=== PATIENT | female | born 1975 | race Caucasian/White ===

== ENCOUNTER → 2018-09-11 14:49 | Outpatient (CLI) | payer BC, SELFPAY | PROVIDERS: Family Provider Family Medicine; PCP Family Medicine; Visit Provider Physician Assistant | DX: N39.0 Urinary tract infection, site not specified (principal) | CPT/HCPCS: 87077; 87086; 87147; 87186 ==

== ENCOUNTER → 2018-10-04 10:12 | Outpatient (CLI) | payer BC, SELFPAY | PROVIDERS: PCP Family Medicine; Visit Provider Physician Assistant | DX: R30.0 Dysuria (principal) | CPT/HCPCS: 87086 ==

== ENCOUNTER → 2018-10-23 07:59 | Outpatient (CLI) | payer BC, SELFPAY ==
--- NOTE | 2018-10-23 08:01 | DI.MG.S_ITS ---
BILATERAL DIGITAL SCREENING MAMMOGRAM 3D/2D WITH CAD: 10/23/2018 CLINICAL: Routine screening. Comparison is made to exam dated: 10/12/2016 [facility]. There are scattered fibroglandular elements in both breasts. Current study was also evaluated with a Computer Aided Detection (CAD) system. No significant masses, calcifications, or other findings are seen in either breast. There has been no significant interval change. IMPRESSION: NEGATIVE There is no mammographic evidence of malignancy. A 1 year screening mammogram is recommended. This exam was interpreted at Station ID: [id number]. NOTE: For mammograms, a report in lay terms will be sent to the patient. Approximately 15% of breast malignancies will not be visualized mammographically. In the management of a palpable breast mass, a negative mammogram must not discourage biopsy of a clinically suspicious lesion. Electronically Signed By: Doc montes/arya:10/23/2018 10:41:17 letter sent: Normal Exam ACR BI-RADS Category 1: Negative 3341F
== END ==
PROVIDERS: PCP Family Medicine; Visit Provider Family Medicine
DX: Z12.31 Encounter for screening mammogram for malignant neoplasm of breast (principal)
CPT/HCPCS: 77063; 77067

== ENCOUNTER → 2019-05-30 08:03 | Outpatient (CLI) | payer BC, SELFPAY ==
[2019-05-30 08:29] LABS: Add Manual Diff / Slide Review NO; Basophils Absolute Auto 0 /uL (0-100); Basophils Percent Auto 0.6 % (0-2); Eosinophils Absolute Auto 200 /uL (0-450); Eosinophils Percent Auto 2.3 % (2-4); Hematocrit 42.6 % (36-46); Hemoglobin 14.7 g/dL (12.0-16.0); Lymphocytes Absolute Auto 1800 /uL (1100-4500); Mean Corpuscular HGB Conc 34.6 % (30-36); Mean Corpuscular Hemoglobin 31.7 PG (26-34); Mean Corpuscular Volume 91.6 fL (80-100); Monocytes Absolute Auto 600 /uL (0-900); Monocytes Percent Auto 7.6 % (3-14); Neutrophils Absolute Auto 5000 /uL (1500-7000); Neutrophils Percent Auto 65.5 % (50-75); Platelet Count 295 X10^3/uL (150-400); Red Blood Cell Count 4.65 X10^6/uL (4.0-5.2); Red Cell Distribution Width 11.9 % (11.6-14.8); White Blood Cell Count 7.7 X10^3/uL (4.5-11.0)
[2019-05-30 08:56] LABS: Cholesterol 170 mg/dL (140-199); HDL Cholesterol 49 mg/dL (40-60); LDL Cholesterol Calculated 104 mg/dL (<100); Triglycerides 83 mg/dL (35-150)
[2019-05-30 08:57] LABS: Alanine Aminotransferase 29 IU/L (<35); Albumin 4.1 g/dL (3.5-5.0); Albumin Globulin Ratio 1.4 (1.0-2.8); Alkaline Phosphatase 53 U/L (38-126); Aspartate Aminotransferase 29 IU/L (14-36); BUN Creatinine Ratio 23.3 (6-22); Bilirubin Total 0.9 mg/dL (0.2-1.3); Blood Urea Nitrogen 14 mg/dL (7-17); Calcium 9.5 mg/dL (8.4-10.2); Carbon Dioxide 27 mmol/L (22-32); Chloride 102 mmol/L (98-107); Estimated Glomerular Filt Rate > 60.0 mL/min (>60); Globulin 2.9 g/dL (1.7-4.1); Glucose 98 mg/dL (70-100); HEMOLYSIS 19 (0-50); Lipase 170 U/L (23-300); Potassium 4.3 mmol/L (3.4-5.1); Sodium 137 mmol/L (137-145)
[2019-05-30 09:28] LABS: TSH w/ Reflex to FT4 2.23 uIU/mL (0.47-4.68)
[2019-05-30 09:59] LABS: Hep C Virus Ab w/Reflex Quant NEGATIVE s/c (NEGATIVE)
== END ==
PROVIDERS: PCP Family Medicine; Visit Provider Family Medicine
DX: Z13.220 Encounter for screening for lipoid disorders (principal); L29.9 Pruritus, unspecified
CPT/HCPCS: 36415; 80053; 80061; 83690; 84443; 85025; 86803

== ENCOUNTER → 2019-09-13 13:12 | Outpatient (CLI) | payer BC, SELFPAY | PROVIDERS: PCP Family Medicine; Visit Provider Physician Assistant | DX: R30.0 Dysuria (principal) | CPT/HCPCS: 87086 ==

== ENCOUNTER → 2020-06-06 08:13 | Outpatient (CLI) | payer BC, SELFPAY ==
--- NOTE | 2020-06-06 | DI.MG.S_ITS ---
BILATERAL DIGITAL SCREENING MAMMOGRAM 3D/2D WITH CAD: 06/06/2020 CLINICAL: Routine screening. Comparison is made to exams dated: 10/23/2018 mammogram and 10/12/2016 mammogram - [facility]. There are scattered fibroglandular elements in both breasts. Current study was also evaluated with a Computer Aided Detection (CAD) system. No significant masses, calcifications, or other findings are seen in either breast. There has been no significant interval change. IMPRESSION: NEGATIVE There is no mammographic evidence of malignancy. A 1 year screening mammogram is recommended. This exam was interpreted at Station ID: [id number]. NOTE: For mammograms, a report in lay terms will be sent to the patient. Approximately 15% of breast malignancies will not be visualized mammographically. In the management of a palpable breast mass, a negative mammogram must not discourage biopsy of a clinically suspicious lesion. Electronically Signed By: Sarah collins/arya:06/06/2020 16:18:16 letter sent: Normal Exam ACR BI-RADS Category 1: Negative 3341F
== END ==
PROVIDERS: PCP Family Medicine; Referring Provider Family Medicine; Visit Provider Family Medicine
DX: Z12.31 Encounter for screening mammogram for malignant neoplasm of breast (principal)
CPT/HCPCS: 77063; 77067

== ENCOUNTER → 2020-09-30 15:38 | Outpatient (CLI) | payer BC, SELFPAY | PROVIDERS: PCP Family Medicine; Visit Provider Physician Assistant | DX: L08.9 Local infection of the skin and subcutaneous tissue, unspecified (principal) | CPT/HCPCS: 87070; 87075; 87077; 87147; 87186; 87205 ==

== ENCOUNTER → 2021-06-12 16:51 | Outpatient (CLI) | payer BC, SELFPAY ==
--- NOTE | 2021-06-12 | DI.MG.S_ITS ---
BILATERAL DIGITAL SCREENING MAMMOGRAM 3D/2D WITH CAD: 06/12/2021 CLINICAL: Routine screening. Comparison is made to exams dated: 06/06/2020 mammogram, 10/23/2018 mammogram, and 10/12/2016 mammogram - [facility]. There are scattered fibroglandular elements in both breasts. Current study was also evaluated with a Computer Aided Detection (CAD) system. No significant masses, calcifications, or other findings are seen in either breast. There has been no significant interval change. IMPRESSION: NEGATIVE There is no mammographic evidence of malignancy. A 1 year screening mammogram is recommended. This exam was interpreted at Station ID: [id number]. NOTE: For mammograms, a report in lay terms will be sent to the patient. Approximately 15% of breast malignancies will not be visualized mammographically. In the management of a palpable breast mass, a negative mammogram must not discourage biopsy of a clinically suspicious lesion. Electronically Signed By: Doc Nelson M.D. at/arya:06/13/2021 07:02:30 letter sent: Normal Exam ACR BI-RADS Category 1: Negative 3341F
== END ==
PROVIDERS: PCP Family Medicine; Referring Provider Family Medicine; Visit Provider Family Medicine
DX: Z12.31 Encounter for screening mammogram for malignant neoplasm of breast (principal)
CPT/HCPCS: 77063; 77067

== ENCOUNTER → 2021-09-12 11:09 | Outpatient (CLI) | payer BC, SELFPAY ==
--- NOTE | 2021-09-12 11:10 | DI.US.S_ITS ---
PROCEDURE: US PELVIC COMPLETE INDICATIONS: pelvic pain TECHNIQUE: Real-time scanning was performed of the pelvic organs, with image documentation. Additional endovaginal scanning was necessary due to incomplete visualization of the adnexal and endometrial structures by transabdominal scanning. COMPARISON: [facility], US, PELVIC COMPLETE, 11/26/2016, 16:47. FINDINGS: Uterus: Uterus is anteverted and measures 9.2 x 5.3 x 5.6 cm. The myometrium is heterogeneous. The endometrium measures 7.2 mm combined thickness. An intrauterine device is seen in situ. Ovaries: The right ovary measures 2.2 x 1.6 x 1.9 cm. The left ovary measures 2.3 x 1.5 x 2.1 cm. The ovaries have a normal sonographic appearance. Less than 12 follicles can be seen in each ovary. No adnexal masses are seen. 1 cm hypoechoic lesion in the right ovary, most consistent with a cyst. Hypoechoic lesion in the left ovary with thin septation measuring up to 1.6 cm, most consistent with a cyst. Other: No pathologic free abdominal or pelvic fluid. IMPRESSION: No significant abnormality. We strive to produce accurate, complete, and clear reports of imaging services. To assist us in improving patient care, this report was composed using standard report templates and voice recognition software. Therefore, it may contain abnormal punctuation, insertions and/or omissions. Occasional wrong-word or sound-alike substitutions may occur. Though we review the report and make efforts to correct it, we do recommend that the report be read carefully in proper context to recognize any text inaccuracies. Dictated by: Von Bruce M.D. on 09/12/2021 at 15:19 Approved by: Von Bruce M.D. on 09/12/2021 at 15:22
== END ==
PROVIDERS: PCP Family Medicine; Referring Provider Family Medicine; Visit Provider Family Medicine
DX: N92.0 Excessive and frequent menstruation with regular cycle (principal)
CPT/HCPCS: 76830; 76856

== ENCOUNTER → 2021-10-13 19:22 | Outpatient (CLI) | payer BC, SELFPAY | PROVIDERS: PCP Family Medicine; Visit Provider Nurse Practitioner Critical Care Medicine | DX: R30.0 Dysuria (principal) | CPT/HCPCS: 87077; 87086; 87186 ==

== ENCOUNTER → 2021-10-24 11:30 | Outpatient (CLI) | payer BC, SELFPAY ==
[2021-10-24 17:14] LABS: Appearance Urine UA CLEAR; Bilirubin Urine UA NEGATIVE (NEGATIVE); Color Urine UA YELLOW; Glucose Urine UA NEGATIVE (Negative); Ketones Urine UA NEGATIVE (NEGATIVE); Leukocyte Esterase Urine UA TRACE (NEGATIVE); Nitrite Urine UA NEGATIVE (Negative); Occult Blood Urine UA 2+ (Negative); Protein Urine UA NEGATIVE (Negative); Urobilinogen Urine UA 0.2 E.U./dL (0.2)
[2021-10-24 17:44] LABS: Amorphous Sediment Urine 1+; Bacteria Urine Few (2-10); RBC Urine 1-5/HPF (0-5/HPF); Squamous Epithelial Cell Urine 0-1 /HPF (0-5/HPF); WBC Urine 1-5/HPF (0-5/HPF); pH Urine UA 6.5 (4.5-8.0)
== END ==
PROVIDERS: PCP Family Medicine; Visit Provider Family Medicine
DX: R30.0 Dysuria (principal); R35.0 Frequency of micturition
CPT/HCPCS: 81001; 87077; 87086; 87186

== ENCOUNTER → 2021-11-11 11:15 | Outpatient (CLI) | payer BC, SELFPAY | PROVIDERS: PCP Family Medicine; Referring Provider Physician Assistant; Visit Provider Physician Assistant | DX: R30.0 Dysuria (principal) | CPT/HCPCS: 87086 ==

== ENCOUNTER → 2021-11-18 09:13 | Outpatient (CLI) | payer BC, SELFPAY ==
[2021-11-18 10:34] LABS: Add Manual Diff / Slide Review NO; Basophils Absolute Auto 100 /uL (0-100); Basophils Percent Auto 1.2 % (0-2); Eosinophils Absolute Auto 100 /uL (0-450); Eosinophils Percent Auto 1.7 % (2-4); Hematocrit 40.1 % (36-46); Hemoglobin 13.9 g/dL (12.0-16.0); Lymphocytes Absolute Auto 1400 /uL (1100-4500); Lymphocytes Percent Auto 21.9 % (25-40); Mean Corpuscular HGB Conc 34.6 % (30-36); Mean Corpuscular Hemoglobin 31.4 PG (26-34); Mean Corpuscular Volume 90.8 fL (80-100); Monocytes Absolute Auto 500 /uL (0-900); Monocytes Percent Auto 7.5 % (3-14); Neutrophils Absolute Auto 4400 /uL (1500-7000); Neutrophils Percent Auto 67.7 % (50-75); Platelet Count 298 X10^3/uL (150-400); Red Blood Cell Count 4.42 X10^6/uL (4.0-5.2); Red Cell Distribution Width 11.9 % (11.6-14.8); White Blood Cell Count 6.6 X10^3/uL (4.5-11.0)
[2021-11-18 10:36] LABS: Hemoglobin A1C% w Est Avg Glu 5.3 % (4.0-6.0)
[2021-11-18 10:41] LABS: Alanine Aminotransferase 31 IU/L (<35); Albumin 4.2 g/dL (3.5-5.0); Albumin Globulin Ratio 1.4 (1.0-2.8); Alkaline Phosphatase 55 U/L (38-126); Aspartate Aminotransferase 32 IU/L (14-36); BUN Creatinine Ratio 16.2 (6-22); Bilirubin Total 0.7 mg/dL (0.2-1.3); Blood Urea Nitrogen 12 mg/dL (7-17); Calcium 8.9 mg/dL (8.4-10.2); Carbon Dioxide 23 mmol/L (22-32); Chloride 103 mmol/L (98-107); Cholesterol 168 mg/dL (140-199); Estimated Glomerular Filt Rate > 60 mL/min (>60); Globulin 3.1 g/dL (1.7-4.1); Glucose 99 mg/dL (70-100); HDL Cholesterol 58 mg/dL (40-60); HEMOLYSIS < 15 (0-50); LDL Cholesterol Calculated 88 mg/dL (<100); Potassium 4.2 mmol/L (3.4-5.1); Sodium 136 mmol/L (137-145); Total Protein 7.3 g/dL (6.3-8.2); Triglycerides 111 mg/dL (35-150)
[2021-11-18 11:11] LABS: Thyroid Stimulating Hormone 2.36 uIU/mL (0.47-4.68)
== END ==
PROVIDERS: PCP Family Medicine; Referring Provider Family Medicine; Visit Provider Family Medicine
DX: R53.83 Other fatigue (principal); Z13.9 Encounter for screening, unspecified
CPT/HCPCS: 36415; 80053; 80061; 83036; 84443; 85025

== ENCOUNTER → 2021-12-28 16:05 | Outpatient (CLI) | payer BC, SELFPAY ==
--- NOTE | 2021-12-28 16:06 | DI.ECHO.S_ITS ---
[facility]---------+ [facility] +---------+ : : [address] : : : : [id number] : : : : Phone: [phone]+ Echocardiogram Report + + :Name: ISRAEL NEVAREZ Study Date: 12/28/2021 Height: 67 in : :[facility] ReadingLocation: Weight: 235 lb : : Gender: Female BSA: 2.2 m2 : :: 1975 Age: 46 yrs BP: 128/76 mmHg: :Reason For Study: SCREENING FOR HYPERTROPHIC CARDIOMYOPATHY : :Ordering Physician: CELESTE, : :LUIS Performed By: Ivette Jamison : :Referring: LUIS ALONSO : + + Interpretation Summary The left ventricle is normal in size and wall thickness. No systolic anterior motion of the mitral valve. The ejection fraction is estimated to be 60-65%. There is no echo evidence for significant left ventricular outflow tract obstruction. No evidence of HOCM. The right ventricle is normal in size and function. No significant valvular pathology seen. The IVC is dilated (diameter is greater than 2.1 cm) yet it collapses greater than 50% with a sniff. This suggests a right atrial pressure of 8 mm Hg. Procedure: A two-dimensional transthoracic echocardiogram with color flow and Doppler was performed. The study quality was technically adequate. There is no prior echocardiogram noted for this patient. The patient was in sinus rhythm with heart rates between 63-74 bpm during the exam. Left Ventricle: The left ventricle is normal in size and wall thickness. There is no echo evidence for significant left ventricular outflow tract obstruction. There is no thrombus. A false chord is noted (normal variant). The ejection fraction is estimated to be 60-65%. There are no focal wall motion abnormalities. Diastolic parameters suggest probable normal left ventricular diastolic function and normal filling pressures. Right Ventricle: The right ventricle is normal in size and function. Atria: The left atrial size is normal. Right atrial size is normal. There is no Doppler evidence for an interatrial shunt. Mitral Valve: The mitral valve is normal in structure and function. No systolic anterior motion of the mitral valve. Redundant elongated chordae are noted. There is trace mitral regurgitation. Aortic Valve: The aortic valve is trileaflet. The aortic valve opens well. There is no aortic valve stenosis. No aortic regurgitation is present. Tricuspid Valve: The tricuspid valve is normal in structure and function. No tricuspid regurgitation. Pulmonic Valve: The pulmonic valve leaflets are thin and pliable; valve motion is normal. There is no pulmonic valvular regurgitation. Great Vessels: The aortic root is normal size. The dimensions of the ascending aorta are normal. The IVC is dilated (diameter is greater than 2.1 cm) yet it collapses greater than 50% with a sniff. This suggests a right atrial pressure of 8 mm Hg. Pericardium/ Pleura There is no pericardial effusion. There is no pleural effusion. MMode/2D Measurements & Calculations LVIDd: 4.2 cm LVOT diam: 2.1 cm LVIDs: 2.7 cm Ao root diam: 3.1 cm FS: 37.0 % asc Aorta Diam: 3.3 cm IVSd: 0.89 cm Ao Arch Diam (Prox Trans): 2.9 cm LVPWd: 0.88 cm LV witt. diameter/BSA (cm/m^2): 1.9 LV sys. diameter/BSA (cm/m^2): 1.2 LA A2 area: 16.0 cm2 RA long axis: 4.9 cm LA A4 area: 12.8 cm2 RA area: 13.2 cm2 LA length (vol): 4.5 cm RA vol: 30.6 ml LA vol: 38.8 ml RA : 14.1 ml/m2 LA vol index: 17.9 ml/m2 IVC diam: 2.2 cm RVD1 (basal): 3.3 cm RVD2 (mid): 3.1 cm Doppler Measurements & Calculations Ao V2 max: 120.2 cm/sec LVOT Max Willard: 104.6 cm/sec Ao V2 mean: 89.6 cm/sec LV V1 max P.4 mmHg Ao max P.8 mmHg LV V1 VTI: 21.7 cm Ao mean P.5 mmHg REBECA(I,D): 2.7 cm2 Ao V2 VTI: 26.9 cm REBECA(V,D): 2.9 cm2 sev ratio: 0.81 REBECA indexed to BSA (cm^2/m^2): 1.2 MV E max willard: 81.0 cm/sec PA V2 max: 123.0 cm/sec MV A max willard: 52.1 cm/sec PA V2 mean: 82.6 cm/sec MV E/A: 1.6 PA mean P.1 mmHg Med Peak E' Willard: 10.4 cm/sec PA pr(Accel): 15.6 mmHg E/E' med: 7.8 Lat Peak E' Willard: 13.9 cm/sec E/E' lat: 5.8 E/e' average: 6.8 MV dec time: 0.23 sec SV(OT): 72.8 ml Reading Physician:05:56 PM
== END ==
PROVIDERS: PCP Family Medicine; Referring Provider Family Medicine; Visit Provider Family Medicine
DX: Z13.6 Encounter for screening for cardiovascular disorders (principal); Z82.49 Family history of ischemic heart disease and other diseases of the circulatory system
CPT/HCPCS: 93306

== ENCOUNTER → 2022-08-15 07:21 | Outpatient (CLI) | payer BC, SELFPAY | PROVIDERS: PCP Family Medicine; Visit Provider Registered Nurse | DX: N39.0 Urinary tract infection, site not specified (principal) | CPT/HCPCS: 87086 ==

== ENCOUNTER → 2022-08-22 07:41 | Outpatient (CLI) | payer BC, SELFPAY ==
--- NOTE | 2022-08-22 07:42 | DI.MG.S_ITS ---
BILATERAL DIGITAL SCREENING MAMMOGRAM 3D/2D WITH CAD: 08/22/2022 CLINICAL: Routine screening. Comparison is made to exams dated: 06/12/2021 mammogram, 06/06/2020 mammogram, and 10/23/2018 mammogram - [facility]. There are scattered areas of fibroglandular density in both breasts (category b / 25%-50% glandular tissue). Current study was also evaluated with a Computer Aided Detection (CAD) system. No significant masses, calcifications, or other findings are seen in either breast. There has been no significant interval change. IMPRESSION: NEGATIVE There is no mammographic evidence of malignancy. A 1 year screening mammogram is recommended. Based on the Tyrer Cuzick model (a risk assessment model) the patient's lifetime risk is 10.8% and her 10 year risk is 2.4%. According to the ACR, ACS, and NCCN guidelines, an annual breast MRI exam along with mammogram is recommended if the patient's lifetime risk is 20% or greater. This exam was interpreted at Station ID: [id number]. NOTE: For mammograms, a report in lay terms will be sent to the patient. Approximately 15% of breast malignancies will not be visualized mammographically. In the management of a palpable breast mass, a negative mammogram must not discourage biopsy of a clinically suspicious lesion. Electronically Signed By: Dequan mccall/arya:08/23/2022 13:11:33 letter sent: Normal Exam ACR BI-RADS Category 1: Negative 3341F
== END ==
PROVIDERS: PCP Family Medicine; Referring Provider Family Medicine; Visit Provider Family Medicine
DX: Z12.31 Encounter for screening mammogram for malignant neoplasm of breast (principal)
CPT/HCPCS: 77063; 77067

== ENCOUNTER → 2022-12-29 09:36 | Outpatient (CLI) | payer BC, SELFPAY | PROVIDERS: PCP Family Medicine; Visit Provider Nurse Practitioner Family | DX: R30.0 Dysuria (principal) | CPT/HCPCS: 87086; 87210 ==

== ENCOUNTER → 2023-10-28 07:47 | Outpatient (CLI) | payer BC, SELFPAY ==
--- NOTE | 2023-10-28 | DI.MG.S_ITS ---
BILATERAL DIGITAL SCREENING MAMMOGRAM 3D/2D WITH CAD: 10/28/2023 CLINICAL: Routine screening. Comparison is made to exams dated: 08/22/2022 mammogram, 06/12/2021 mammogram, and 06/06/2020 mammogram - [facility]. There are scattered areas of fibroglandular density in both breasts (category b / 25%-50% glandular tissue). Current study was also evaluated with a Computer Aided Detection (CAD) system. No significant masses, calcifications, or other findings are seen in either breast. There has been no significant interval change. IMPRESSION: NEGATIVE There is no mammographic evidence of malignancy. A 1 year screening mammogram is recommended. Based on the Tyrer Cuzick model (a risk assessment model) the patient's lifetime risk is 10.8% and her 10 year risk is 2.5%. According to the ACR, ACS, and NCCN guidelines, an annual breast MRI exam along with mammogram is recommended if the patient's lifetime risk is 20% or greater. This exam was interpreted at Station ID: [id number]. NOTE: For mammograms, a report in lay terms will be sent to the patient. Approximately 15% of breast malignancies will not be visualized mammographically. In the management of a palpable breast mass, a negative mammogram must not discourage biopsy of a clinically suspicious lesion. Electronically Signed By: Celine langston/arya:10/28/2023 12:54:47 letter sent: Normal Exam ACR BI-RADS Category 1: Negative 3341F
== END ==
PROVIDERS: PCP Family Medicine; Referring Provider Family Medicine; Visit Provider Family Medicine
DX: Z12.31 Encounter for screening mammogram for malignant neoplasm of breast (principal); R92.323 Mammographic fibroglandular density, bilateral breasts
CPT/HCPCS: 77063; 77067

== ENCOUNTER → 2024-01-25 07:53 | Outpatient (CLI) | payer BC, SELFPAY ==
--- NOTE | 2024-01-25 07:54 | DI.RAD.S_ITS ---
PROCEDURE: XR ELBOW LT MIN 3V INDICATIONS: elbow pain TECHNIQUE: 3 views of the elbow were acquired. COMPARISON: None. FINDINGS: Bones: No fractures or dislocations. No suspicious bony lesions. Degenerative changes of the left elbow. Findings compatible with sequela of chronic lateral epicondylitis. Soft tissues: No elbow joint effusion. No suspicious soft tissue calcifications. IMPRESSION: No acute bony abnormality or significant joint effusion. Left elbow degenerative changes. Dictated by: Doc Nelson M.D. on 01/25/2024 at 12:17 Approved by: Doc Nelson M.D. on 01/25/2024 at 12:18
[2024-01-25 09:25] LABS: Hemoglobin A1C% w Est Avg Glu 5.5 % (4.0-6.0)
[2024-01-25 09:30] LABS: Cholesterol 173 mg/dL (140-199); HDL Cholesterol 56 mg/dL (40-60); LDL Cholesterol Calculated 92 mg/dL (<100); Triglycerides 126 mg/dL (35-150)
[2024-01-25 10:01] LABS: TSH w/ Reflex to FT4 2.91 uIU/mL (0.47-4.68)
== END ==
PROVIDERS: PCP Family Medicine; Referring Provider Family Medicine; Visit Provider Family Medicine
DX: M25.522 Pain in left elbow (principal); Z13.1 Encounter for screening for diabetes mellitus; R63.5 Abnormal weight gain; E78.5 Hyperlipidemia, unspecified; Z13.29 Encounter for screening for other suspected endocrine disorder
CPT/HCPCS: 36415; 73080; 80061; 83036; 84443

== ENCOUNTER → 2024-03-19 07:13 | Outpatient (CLI) | payer BC, SELFPAY | PROVIDERS: Family Provider Family Medicine; PCP Family Medicine; Visit Provider Nurse Practitioner Family | DX: R30.0 Dysuria (principal); N94.9 Unspecified condition associated with female genital organs and menstrual cycle | CPT/HCPCS: 87086; 87210 ==

== ENCOUNTER → 2024-05-06 15:18 | Outpatient (CLI) | payer BC, SELFPAY ==
[2024-05-06 16:59] LABS: Add Manual Diff / Slide Review NO; Basophils Absolute Auto 100 /uL (0-100); Basophils Percent Auto 0.6 % (0-2); Eosinophils Absolute Auto 0 /uL (0-450); Eosinophils Percent Auto 0.2 % (2-4); Hematocrit 42.8 % (36-46); Hemoglobin 14.4 g/dL (12.0-16.0); Lymphocytes Absolute Auto 1400 /uL (1100-4500); Lymphocytes Percent Auto 9.4 % (25-40); Mean Corpuscular HGB Conc 33.8 % (30-36); Mean Corpuscular Hemoglobin 31.2 PG (26-34); Mean Corpuscular Volume 92.4 fL (80-100); Monocytes Absolute Auto 600 /uL (0-900); Neutrophils Absolute Auto 13000 /uL (1500-7000); Neutrophils Percent Auto 85.8 % (50-75); Platelet Count 357 X10^3/uL (150-400); Red Blood Cell Count 4.63 X10^6/uL (4.0-5.2); Red Cell Distribution Width 12.8 % (11.6-14.8); White Blood Cell Count 15.2 X10^3/uL (4.5-11.0)
[2024-05-06 17:25] LABS: HEMOLYSIS < 15 (0-50); Iron 95 ug/dL (37-170)
[2024-05-06 17:37] LABS: Percent Iron Saturation 31 % (15-50); Total Iron Binding Capacity 309 ug/dL (265-497); Transferrin 250 mg/dL (206-381)
[2024-05-06 18:01] LABS: Ferritin 37 ng/mL (11-264)
== END ==
PROVIDERS: Family Provider Family Medicine; PCP Family Medicine; Referring Provider Family Medicine; Visit Provider Family Medicine
DX: L65.9 Nonscarring hair loss, unspecified (principal)
CPT/HCPCS: 36415; 82728; 83540; 83550; 85025

== ENCOUNTER → 2024-06-02 07:09 | Outpatient (CLI) | payer BC, SELFPAY ==
[2024-06-02 08:16] LABS: Add Manual Diff / Slide Review NO; Basophils Absolute Auto 100 /uL (0-100); Basophils Percent Auto 1.3 % (0-2); Eosinophils Absolute Auto 200 /uL (0-450); Eosinophils Percent Auto 3.6 % (2-4); Hematocrit 40.9 % (36-46); Hemoglobin 13.8 g/dL (12.0-16.0); Lymphocytes Absolute Auto 1500 /uL (1100-4500); Lymphocytes Percent Auto 26.2 % (25-40); Mean Corpuscular HGB Conc 33.7 % (30-36); Mean Corpuscular Hemoglobin 30.7 PG (26-34); Mean Corpuscular Volume 91.1 fL (80-100); Monocytes Absolute Auto 500 /uL (0-900); Monocytes Percent Auto 8.6 % (3-14); Neutrophils Absolute Auto 3500 /uL (1500-7000); Neutrophils Percent Auto 60.3 % (50-75); Platelet Count 347 X10^3/uL (150-400); Red Blood Cell Count 4.49 X10^6/uL (4.0-5.2); Red Cell Distribution Width 12.4 % (11.6-14.8); White Blood Cell Count 5.8 X10^3/uL (4.5-11.0)
== END ==
PROVIDERS: Family Provider Family Medicine; PCP Family Medicine; Referring Provider Family Medicine; Visit Provider Family Medicine
DX: D72.829 Elevated white blood cell count, unspecified (principal)
CPT/HCPCS: 36415; 85025

== ENCOUNTER 2024-06-26 07:30 | Outpatient (RCR) | payer BC, SELFPAY ==
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
== END 2024-07-16 14:45 | disposition home or self-care (01) ==
LOC: PHYS 07:30
PROVIDERS: Family Provider Family Medicine; PCP Family Medicine; Referring Provider Family Medicine; Visit Provider Family Medicine
DX: M25.559 Pain in unspecified hip (principal); M25.529 Pain in unspecified elbow; R53.1 Weakness; M25.622 Stiffness of left elbow, not elsewhere classified
CPT/HCPCS: 97110; 97140; 97161

== ENCOUNTER 2024-09-15 19:23 | Emergency (ER) | payer BC, SELFPAY ==
[2024-09-15] VITALS (10 sets, daily range): BP systolic 118–165; BP diastolic 59–76; PULSE 54–85; RESP 17; TEMP 36.3; O2SAT 99–100; BMI 39.1
--- NOTE | 2024-09-15 19:43 | DI.CT.S_ITS ---
PROCEDURE: CT ANGIO HEAD AND NECK INDICATIONS: Worst VAZQUEZ of life last wed09/09, still with VAZQUEZ TECHNIQUE: After the administration of intravenous contrast, 1 mm thick sections acquired from the aortic arch through the [place] of [place]. 3-dimensional yhhdtdd-yzrhsitxv-xpmndtezrp (MIP) and/or volume rendering reformats were acquired of the central intracranial vasculature and neck separately. For radiation dose reduction, the following was used: automated exposure control, adjustment of mA and/or kV according to patient size. COMPARISON: None. FINDINGS: Image quality: Diagnostic HEAD ANGIOGRAPHY: Anterior circulation: ICAs: Patent ACAs: Patent MCAs: Patent AComm: No aneurysm Venous sinuses: No evidence of occlusive thrombus Posterior circulation: Dominance: Equal Vertebral arteries: Patent Basilar artery: Patent PComms: No aneurysm correctional security officer: Patent NECK ANGIOGRAPHY: Aortic arch and subclavian arteries: Patent CCAs: Patent ICA origins (by NASCET criteria): No hemodynamically significant narrowing. ICAs: Patent ECAs: Origins are patent. Vertebral arteries: Unremarkable Soft tissues: No significant mass, aneurysm, or lymphadenopathy Lung apices: No pneumothorax Bones: No acute or suspicious abnormality. IMPRESSION: No large vessel occlusion or high-grade stenosis. No significant aneurysm is seen. Any quantitative measurements of stenosis were performed using NASCET criteria. Dictated by: Prabhu Benitez M.D. on 09/15/2024 at 20:30 Approved by: Prabhu Benitez M.D. on 09/15/2024 at 20:35
--- NOTE | 2024-09-15 19:43 | DI.CT.S_ITS ---
PROCEDURE: CT HEAD/BRAIN WO CON INDICATIONS: Worst VAZQUEZ of life last wed09/09, still with VAZQUEZ TECHNIQUE: Noncontrast 4.5 mm thick angled axial sections acquired from the foramen magnum to the vertex, with coronal and sagittal reformats. For radiation dose reduction, the following was used: automated exposure control, adjustment of mA and/or kV according to patient size. COMPARISON: None. FINDINGS: Image quality: Diagnostic CSF spaces: Basal cisterns are patent. Lateral ventricles are symmetric. Volume: Generally maintained. Brain: No intracranial hemorrhage. Espinoza-white differentiation is grossly maintained. Craniofacial structures: No displaced fracture. Sinuses are clear. Orbits are intact. IMPRESSION: No acute intracranial pathology. Dictated by: Prabhu eBnitez M.D. on 09/15/2024 at 20:28 Approved by: Prabhu Benitez M.D. on 09/15/2024 at 20:29
[2024-09-15 20:13] LABS: Add Manual Diff / Slide Review NO; Basophils Absolute Auto 0 /uL (0-100); Basophils Percent Auto 0.5 % (0-2); Eosinophils Absolute Auto 200 /uL (0-450); Hematocrit 41.7 % (36-46); Hemoglobin 14.3 g/dL (12.0-16.0); Lymphocytes Absolute Auto 1700 /uL (1100-4500); Mean Corpuscular HGB Conc 34.3 % (30-36); Mean Corpuscular Hemoglobin 31.5 PG (26-34); Mean Corpuscular Volume 91.6 fL (80-100); Monocytes Absolute Auto 500 /uL (0-900); Monocytes Percent Auto 6.5 % (3-14); Neutrophils Absolute Auto 5700 /uL (1500-7000); Platelet Count 346 X10^3/uL (150-400); Red Blood Cell Count 4.55 X10^6/uL (4.0-5.2); Red Cell Distribution Width 12.6 % (11.6-14.8); White Blood Cell Count 8.2 X10^3/uL (4.5-11.0)
[2024-09-15 20:26] LABS: Alanine Aminotransferase 39 IU/L (<35); Albumin 4.3 g/dL (3.5-5.0); Albumin Globulin Ratio 1.3 (1.0-2.8); Alkaline Phosphatase 58 U/L (38-126); Aspartate Aminotransferase 38 IU/L (14-36); BUN Creatinine Ratio 18.7 (6-22); Bilirubin Total 0.4 mg/dL (0.2-1.3); Blood Urea Nitrogen 14 mg/dL (7-17); Calcium 9.1 mg/dL (8.4-10.2); Carbon Dioxide 27 mmol/L (22-32); Chloride 101 mmol/L (98-107); Estimated Glomerular Filt Rate > 60 mL/min (>60); Globulin 3.3 g/dL (1.7-4.1); Glucose 106 mg/dL (70-100); HEMOLYSIS < 15 (0-50); Sodium 135 mmol/L (137-145); Total Protein 7.6 g/dL (6.3-8.2)
--- NOTE | 2024-09-15 22:14 | ED_ITS ---
HPI - Headache General Chief Complaint: Headache Stated Complaint: headache for a week Time Seen by Provider: 09/15/24 22:01 Source: patient, RN notes reviewed and old records reviewed Mode of arrival: Ambulatory Limitations: no limitations History of Present Illness HPI Narrative: 49-year-old female presents with complaint of severe headache last Saturday that was brief but unlike anything I have ever felt before or ever since has significantly improved but still been present. Patient states she developed sudden onset severe headache describes it as the worst headache of her life. Lasted for a few minutes and then subsided did not resolve but got much more manageable and has continued to improve over time but never completely resolved. She was not had any fevers or chills. No neck or back pain. No chest pain or shortness of breath. Did not have any nausea or vomiting with it. Denies any loss of bowel or bladder control. No numbness, no tingling, no weakness no difficulty with movement or gait. No sudden vision changes. Patient states she was taking Tylenol and Aleve has had most affect with a leave for her symptoms. She states she is hormone therapy but no other daily medications. She has had prior cholecystectomy, pelvic floor surgery and tonsillectomy. Notes an allergy to amoxicillin and Cipro. No tobacco, no regular alcohol, no recreational drugs. Has had some mild headaches in the past but not regularly. Patient tried to follow up with primary care was rescheduled twice and was told by staff to come to the ER. Related Data Home Medications Medication Instructions Recorded Confirmed estradiol 0.01% (0.1 mg/gram) 1.5 g vaginal 2XW 02/04/23 05/06/24 vaginal cream estradiol 0.05 mg/24 hr weekly 1 patch transdermal 02/04/23 05/06/24 transdermal patch progesterone micronized 200 mg 200 mg PO ONCE PM 03/19/24 05/06/24 capsule Allergies Allergy/AdvReac Type Severity Reaction Status Date / Time amoxicillin [AMOXICILLIN] Allergy Unknown Verified 05/06/24 15:04 ciprofloxacin [From CIPRO] Allergy Unknown joint Verified 05/06/24 15:04 pain, muscle cramps Review of Systems Review of Systems ROS Unobtainable: All systems reviewed & are unremarkable except as noted in HPI and below Patient History Medical History Foot pain (2016) Chicken pox (1990) Vaginal delivery Cholecystitis Surgical History Anesthesia Status post laparoscopic cholecystectomy (07/23/16) Status post tonsillectomy and adenoidectomy (1988) History of third molar tooth extraction Family History Father COPD (chronic obstructive pulmonary disease) Heart disease Grandfather Colon cancer Grandmother No problems noted. Social History marital status: number of children: 2 household members: family lives independently: Yes caregiver/support person: No housing: house education level: college occupational status: employed Smoking Status: Never smoker second hand exposure: No alcohol intake: never substance use type: does not use Smoking Status: Never smoker Exam Narrative Exam Narrative: GEN: well nourished, well appearing., alert and oriented x 3, patient appears to be in mild distress. HEENT: Atraumatic, pupils are equal round reactive to light, extraocular movements are intact, no nystagmus, no photophobia, nares are clear, TMs are clear with no fluid, there is no conjunctival pallor. Throat is clear without any exudates, erythema, tonsillar enlargement or uvular deviation, no facial droop HEART: Regular rate and rhythm without murmur, clicks, rubs. No carotid bruits, pulses are equal in upper and lower extremities LUNGS:Lungs clear to auscultation, no wheezes, rales, crackles, chest moves symmetrically ABD:bowel sounds normal, soft, non-tender, no guarding, rebound, rigidity, no masses noted, no hepatosplenomegaly :No CVA tenderness MSCL: Non-tender, no muscle atrophy, muscles strength 5/5 upper and lower extremities, full range of motion, normal gait NEURO:CN 2-12 intact, sensation normal, reflexes 2/4 upper and lower extremities. finger nose finger test normal, heel charlton test normal, no dysarthria, no aphasia. Initial Vital Signs Initial Vital Signs: Vital Signs Temperature 97.4 F L 09/15/24 19:28 Pulse Rate 85 09/15/24 19:28 Respiratory Rate 17 09/15/24 19:28 Blood Pressure 165/76 H 03/11/25 19:28 Pulse Oximetry 99 09/15/24 19:28 Oxygen Delivery Method Room Air 09/15/24 19:28 Course Orders Ordered: ED Orders 09/15/24 19:43 CT angio head and neck Stat CT head/brain wo con Stat 09/15/24 20:04 CMP [Comprehensive Metabolic Panel] Stat Complete Blood Count AUTO DIFF Stat Vital Signs Vital signs: Vital Signs - 8 hr 09/15/24 19:28 09/15/24 20:54 09/15/24 20:55 Temperature 97.4 F L Pulse Rate 85 61 Respiratory Rate 17 Blood Pressure 165/76 H Pulse Oximetry 99 100 100 Oxygen Delivery Method Room Air 09/15/24 20:55 09/15/24 21:00 09/15/24 21:01 Temperature Pulse Rate 63 57 L Respiratory Rate Blood Pressure 144/75 H Pulse Oximetry 99 100 Oxygen Delivery Method 09/15/24 21:01 09/15/24 21:30 09/15/24 21:31 Temperature Pulse Rate 55 L Respiratory Rate Blood Pressure 140/67 118/59 L Pulse Oximetry 100 Oxygen Delivery Method 09/15/24 21:31 09/15/24 22:00 09/15/24 22:00 Temperature Pulse Rate 54 L 65 Respiratory Rate Blood Pressure 118/67 Pulse Oximetry 100 100 Oxygen Delivery Method Room Air 09/15/24 22:30 09/15/24 22:31 09/15/24 22:31 Temperature Pulse Rate 61 61 Respiratory Rate Blood Pressure 138/66 Pulse Oximetry 99 99 Oxygen Delivery Method MDM - Headache Lab Data 09/15/24 20:04 09/15/24 20:04 Labs: Lab Results 09/15/24 Range/Units 20:04 WBC 8.2 (4.5-11.0) X10^3/uL RBC 4.55 (4.0-5.2) X10^6/uL Hgb 14.3 (12.0-16.0) g/dL Hct 41.7 (36-46) % MCV 91.6 (80-100) fL MCH 31.5 (26-34) PG MCHC 34.3 (30-36) % RDW 12.6 (11.6-14.8) % Plt Count 346 (150-400) X10^3/uL Neut % (Auto) 70.0 (50-75) % Lymph % (Auto) 21.0 L (25-40) % [place] % (Auto) 6.5 (3-14) % Eos % (Auto) 2.0 (2-4) % Baso % (Auto) 0.5 (0-2) % Neut # (Auto) 5700 (2704-2751) /uL Lymph # (Auto) 1700 (7294-5014) /uL [place] # (Auto) 500 (0-900) /uL Eos # (Auto) 200 (0-450) /uL Baso # (Auto) 0 (0-100) /uL Sodium 135 L (137-145) mmol/L Potassium 4.0 (3.4-5.1) mmol/L Chloride 101 (98-107) mmol/L Carbon Dioxide 27 (22-32) mmol/L BUN 14 (7-17) mg/dL Creatinine 0.75 (0.52-1.04) mg/dL Estimated GFR > 60 (>60) mL/min BUN/Creatinine Ratio 18.7 (6-22) Glucose 106 H (70-100) mg/dL Calcium 9.1 (8.4-10.2) mg/dL Total Bilirubin 0.4 (0.2-1.3) mg/dL AST 38 H (14-36) IU/L ALT 39 H (<35) IU/L Alkaline Phosphatase 58 (38-126) U/L Total Protein 7.6 (6.3-8.2) g/dL Albumin 4.3 (3.5-5.0) g/dL Globulin 3.3 (1.7-4.1) g/dL Albumin/Globulin Ratio 1.3 (1.0-2.8) MDM Narrative Medical decision making narrative: Labs show normal CBC, sodium 135 glucose of 106 otherwise normal chemistries AST of 38 ALT of 39. Non-con head CT shows no acute intracranial pathology. CT angio of the head and neck shows no large vessel occlusion, high-grade stenosis or significant aneurysm noted. 49-year-old female presents with a complaint of significant headache sudden onset and then shortly improved. This was 6 days ago has not improved although still been a little bit persistent. No neurologic changes during or after. Patient's vitals overall are appropriate. Patient is exam is reassuring. Non- con head CT shows no acute bleed or change CT angio does not show any acute change of the head or neck. Labs are overall appropriate. Discussed with patient if she was recurrent symptoms I would recommend she return immediately to the ER for repeat evaluation. Over like for her to follow up with primary care discussed differential but concern for aneurysm or subarachnoid bleed a with that is sore he is concerning but with imaging being reassuring and almost a week out from episode felt appropriate for discharge and follow up. Discharge Plan Departure Patient Disposition: Home Clinical Impression: Headache Activity Restrictions/Additional Instructions: Follow up with your physician for repeat evaluation, if you are finding that you are having mild or new changes to headache patterns you may wish to follow up with the Neurology. If you are having very severe or worst headache of your life symptoms, neurologic changes, vomiting, photophobia other sudden or new changes please return for repeat evaluation. Prescriptions: No Action estradiol 0.05 mg/24 hr patch weekly 1 patch transdermal estradiol 0.01 % (0.1 mg/gram) cream 1.5 g vaginal 2XW progesterone micronized 200 mg capsule 200 mg PO ONCE PM Referrals: Joya Denise MD [Primary Care Provider] - Stand Alone Forms: Patient Portal/API/Survey
== END 2024-09-15 22:50 | disposition home or self-care (01) ==
PROVIDERS: Emergency Provider Emergency Medicine; Family Provider Family Medicine; PCP Family Medicine
DX: R51.9 Headache, unspecified (principal)
CPT/HCPCS: 36415; 70450; 70496; 70498; 80053; 85025; 99283; 99284

== ENCOUNTER → 2024-10-18 11:54 | Outpatient (CLI) | payer BC, SELFPAY | PROVIDERS: Family Provider Family Medicine; PCP Family Medicine; Visit Provider Physician Assistant Surgical | DX: R30.0 Dysuria (principal); N39.0 Urinary tract infection, site not specified | CPT/HCPCS: 87086; 87210 ==

== ENCOUNTER → 2024-12-01 16:21 | Outpatient (CLI) | payer BC, SELFPAY ==
--- NOTE | 2024-12-01 16:22 | DI.MG.S_ITS ---
MM screening mammo BI: 12/01/2024. BI-RADS: 1 CLINICAL: 49-year old female for bilateral screening mammogram. Tyrer-Cuzick lifetime risk of 11.1%. No personal or first-degree family history of breast cancer. PRIOR EXAMS 10/28/2023, 08/22/2022, 06/12/2021, 06/06/2020, 10/23/2018, 10/12/2016. MAMMOGRAPHY TECHNIQUE: 2D and 3D (tomosynthesis) digital mammographic views obtained, with additional images as needed for full coverage. Current study was also evaluated with a Computer Aided Detection (CAD) system. DENSITY B. There are scattered areas of fibroglandular density. MAMMOGRAPHY FINDINGS Bilateral: No suspicious mass, asymmetry, microcalcification, or other abnormality seen. IMPRESSION: * No evidence of malignancy. RECOMMENDATIONS Bilateral * Annual screening mammography. OVERALL ASSESSMENT CATEGORY BI-RADS-1: Negative. The [employer] recommends annual screening mammography beginning at age 40 for women with average risk of breast cancer. ELECTRONICALLY SIGNED: Doc Nelson M.D. on 12/02/2024 at 11:39:49 AM PT Interpreting Station ID: [id number]
== END ==
PROVIDERS: Family Provider Family Medicine; PCP Family Medicine; Referring Provider Family Medicine; Visit Provider Family Medicine
DX: Z12.31 Encounter for screening mammogram for malignant neoplasm of breast (principal)
CPT/HCPCS: 77063; 77067

== ENCOUNTER → 2025-06-16 14:30 | Outpatient (CLI) | payer BC, SELFPAY ==
--- NOTE | 2025-06-16 15:07 | EKG_ITS ---
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
[2025-06-16 16:58] LABS: Alanine Aminotransferase 33 IU/L (<35); Albumin 4.4 g/dL (3.5-5.0); Albumin Globulin Ratio 1.3 (1.0-2.8); Alkaline Phosphatase 63 U/L (38-126); Blood Urea Nitrogen 19 mg/dL (7-17); Calcium 9.3 mg/dL (8.4-10.2); Carbon Dioxide 22 mmol/L (22-32); Chloride 104 mmol/L (98-107); Cholesterol 185 mg/dL (140-199); Estimated Glomerular Filt Rate > 60 mL/min (>60); Globulin 3.3 g/dL (1.7-4.1); Glucose 104 mg/dL (70-99); HDL Cholesterol 46 mg/dL (40-60); HEMOLYSIS < 15 (0-50); Potassium 4.2 mmol/L (3.4-5.1); Sodium 136 mmol/L (137-145); Total Protein 7.7 g/dL (6.3-8.2); Triglycerides 115 mg/dL (35-150)
[2025-06-16 17:10] LABS: Troponin I < 0.012 ng/mL (0.01-0.034)
== END ==
PROVIDERS: PCP Family Medicine; Referring Provider Family Medicine; Visit Provider Family Medicine
DX: R07.9 Chest pain, unspecified (principal)
CPT/HCPCS: 36415; 80053; 80061; 84484; 93005